=== PATIENT | male | born 1980 | race Two or more races ===

== ENCOUNTER 2017-08-14 12:06 | Emergency (ER) | payer SELFPAY ==
[2017-08-14 12:15] VITALS: BP 144/104
--- NOTE | 2017-08-14 12:32 | EDM.PDOC ---
ED HPI GENERAL MEDICAL PROBLEM - General Chief Complaint: General Stated Complaint: DENTAL PAIN Time Seen by Provider: 08/14/17 12:28 Source of Information: Reports: Patient History Limitations: Reports: No Limitations - History of Present Illness INITIAL COMMENTS - FREE TEXT/NARRATIVE: HISTORY AND PHYSICAL: History of present illness: [37-year-old male complains of left jaw toothache for one day. Patient points to #18 states it's been hurting him. He has no facial swelling no intraoral swelling. He does not have a visible cavity but states it hurts if he touches the tooth. No headache or stiff neck no fevers chills sweats or shaking chills. Denies chest pain or shortness of breath no other complaints patient has not seen a dentist Review of systems: As per history of present illness and below otherwise all systems reviewed and negative. Past medical history: As per history of present illness and as reviewed below otherwise noncontributory. Surgical history: As per history of present illness and as reviewed below otherwise noncontributory. Social history: No reported history of drug or alcohol abuse. Family history: As per history of present illness and as reviewed below otherwise noncontributory. Physical exam: Well-appearing 37-year-old male no acute distress. Mild tenderness #18 swelling or mass. Normal intraoral exam no submental fullness swelling her tongue elevation. No cheek mass or swelling. Normal oropharynx no cervical adenopathy supple neck clear lungs regular rhythm no murmur remainder of exam is benign HEENT: Atraumatic, normocephalic, pupils reactive, negative for conjunctival pallor or scleral icterus, mucous membranes moist, throat clear, neck supple, nontender, trachea midline. Lungs: Clear to auscultation, breath sounds equal bilaterally, chest nontender. Heart: S1S2, regular, negative for clicks, rubs, or JVD. Abdomen: Soft, nondistended, nontender. Negative for masses or hepatosplenomegaly. Negative for costovertebral tenderness. Pelvis: Stable nontender. Genitourinary: Deferred. Rectal: Deferred. Extremities: Atraumatic, negative for cords or calf pain. Neurovascular unremarkable. Neuro: Awake, alert, oriented. Cranial nerves grossly unremarkable. Cerebellum unremarkable. Motor and sensory unremarkable throughout. Exam nonfocal. Diagnostics: [] Therapeutics: [Penicillin and Toradol] Impression: [Toothache] Plan: [Signs and symptoms consistent with toothache suspected secondary to dental infection however no drainable abscess appreciated and patient has no systemic signs of illness. Penicillin given in ED and prescribed. Toradol administered in ED the patient is aware to take ibuprofen every 6 hours and Tylenol as needed. Follow-up with a dentist in one to 2 days and return immediately for new severe or worsening symptoms] Definitive disposition and diagnosis as appropriate pending reevaluation and review of above. left lower dental Pain Score (Numeric/FACES): 7 - Related Data Allergies Allergy/AdvReac Type Severity Reaction Status Date / Time No Known Allergies Allergy Verified 08/14/17 12:15 Home Meds: Home Meds Penicillin V Potassium [IJP: Penicillin V Potassium] 500 mg PO .EVERY 6 HOURS # 40 tab 08/14/17 [Rx] Past Medical History - Past Health History Medical/Surgical History: Denies Medical/Surgical History Social & Family History - Family History Family Medical History: Noncontributory - Tobacco Use Smoking Status *Q: Current Some Day Smoker Years of Tobacco use: 3 Packs/Tins Daily: 0 - Caffeine Use Caffeine Use: Reports: None - Recreational Drug Use Recreational Drug Use: No ED ROS GENERAL - Review of Systems Review Of Systems: See Below (History of present illness) ED EXAM, GENERAL - Physical Exam Exam: See Below (History of present illness) Course - Vital Signs Last Recorded V/S: Last Vital Signs Temp 36.6 C 08/14/17 12:12 Pulse 79 08/14/17 12:12 Resp 16 08/14/17 12:12 BP 144/104 H 08/14/17 12:12 Pulse Ox 94 L 08/14/17 12:12 Departure - Departure Time of Disposition: 12:49 Disposition: Home, Self-Care 01 Condition: Good Clinical Impression: Toothache - Discharge Information Referrals: PCP,None [Primary Care Provider] - Forms: ED Department Discharge Additional Instructions: You have a toothache. It is most likely that the pain in the tooth of your left jaw is a result of an infection associated with a cavity. Finish penicillin as prescribed 4 times a day for 10 days. If you have discomfort take 800 mg of ibuprofen every 6 hours and also take Tylenol every 4 hours if needed. Follow- up with the dentist for dental clinic in one to 2 days. Return immediately for new severe or worsening symptoms
[2017-08-14] MEDS ORDERED: Ketorolac 60 MG/2 ML SDV IM ONE (12:51)
[2017-08-14] MEDS ORDERED: Penicillin V Potassium 500 MG Tab PO ONE (12:51)
== END 2017-08-14 13:32 | disposition home or self-care (01) ==
LOC: MW.ED 12:06
DX: K08.89 Other specified disorders of teeth and supporting structures (principal); F17.210 Nicotine dependence, cigarettes, uncomplicated
CPT/HCPCS: 96372; 99282; A9270; J1885

== ENCOUNTER 2020-03-11 08:24 | Emergency (ER) | payer SELFPAY ==
[2020-03-11] MEDS ORDERED: Sodium Chloride 0.9% 1,000 ML IV ONE (09:12)
[2020-03-11] MEDS ORDERED: Aspirin 81 MG Tab.Chew PO SCH (09:15)
[2020-03-11] MEDS ORDERED: Alum Hydrox/Mag Hydrox/Simeth 15 ML, Metoclopramide 5 MG, Lidocaine 2% 5 ML PO ONE ×3 (09:19)
[2020-03-11 09:36] LABS: BLOOD UREA NITROGEN,BUN 19 mg/dL (7.0-18.0); CARBON DIOXIDE,CO2 27.4 mmol/L (21.0-32.0); CHLORIDE,CL 104 mmol/L (98-107); GLUCOSE RANDOM 132 mg/dL (74-106); POTASSIUM,K 3.7 mmol/L (3.5-5.1); SODIUM,NA 139 mmol/L (136-148)
--- NOTE | 2020-03-11 09:39 | CR ---
Chest: Portable view of the chest was obtained. Comparison: No prior chest imaging is available. Heart size and mediastinum are within normal limits. Lungs are clear with no acute parenchymal change. Bony structures are grossly intact. Impression: 1. Nothing acute is appreciated on portable chest x-ray. Diagnostic code #1 This report was dictated in MDT
--- NOTE | 2020-03-11 09:58 | EDM.PDOC ---
ED HPI GENERAL MEDICAL PROBLEM - General Chief Complaint: Chest Pain Stated Complaint: HEADACHE Time Seen by Provider: 03/11/20 09:56 Source of Information: Reports: Patient History Limitations: Reports: No Limitations - History of Present Illness INITIAL COMMENTS - FREE TEXT/NARRATIVE: This is a 38-year-old male with a chest pain. Patient states that he has sided chest pain. Onset: Today Duration: Day(s):, Improving Location: Reports: Chest Quality: Reports: Burning Severity: Mild Improves with: Reports: None Worsens with: Reports: None Associated Symptoms: Reports: Chest Pain chest pain Pain Score (Numeric/FACES): 2 - Related Data Allergies Allergy/AdvReac Type Severity Reaction Status Date / Time No Known Allergies Allergy Verified 03/11/20 08:31 Home Meds: Home Meds . [No Known Home Meds] 03/11/20 [History] Past Medical History - Past Health History Medical/Surgical History: Denies Medical/Surgical History - Infectious Disease History Infectious Disease History: Reports: None Social & Family History - Family History Family Medical History: Noncontributory - Tobacco Use Smoking Status *Q: Never Smoker - Caffeine Use Caffeine Use: Reports: None - Recreational Drug Use Recreational Drug Use: No ED ROS GENERAL - Review of Systems Review Of Systems: See Below Constitutional: Reports: No Symptoms HEENT: Reports: No Symptoms Respiratory: Reports: No Symptoms Cardiovascular: Reports: Chest Pain Endocrine: Reports: No Symptoms GI/Abdominal: Reports: No Symptoms : Reports: No Symptoms Musculoskeletal: Reports: No Symptoms Skin: Reports: No Symptoms Neurological: Reports: No Symptoms Psychiatric: Reports: No Symptoms Hematologic/Lymphatic: Reports: No Symptoms Immunologic: Reports: No Symptoms ED EXAM, GENERAL - Physical Exam Exam: See Below General Appearance: Alert, WD/WN, No Apparent Distress Eye Exam: Bilateral Eye: Normal Fundi, Normal Inspection, PERRL Ears: Normal External Exam, Normal Canal, Hearing Grossly Normal, Normal TMs Ear Exam: Bilateral Ear: Auricle Normal, Canal Normal, TM normal Nose: Normal Inspection, Normal Mucosa, No Blood Throat/Mouth: Normal Inspection, Normal Lips, Normal Teeth, Normal Gums, Normal Voice, No Airway Compromise Head: Atraumatic, Normocephalic Neck: Normal Inspection, Supple, Non-Tender Respiratory/Chest: No Respiratory Distress, Lungs Clear, Normal Breath Sounds, No Accessory Muscle Use, Chest Non-Tender Cardiovascular: Normal Peripheral Pulses, Regular Rate, Rhythm, No Edema, No Gallop, No JVD, No Murmur, No Rub GI/Abdominal: Normal Bowel Sounds, Soft, Non-Tender, No Abnormal Bruit Back Exam: Normal Inspection, Full Range of Motion Extremities: Normal Inspection, Normal Range of Motion, Non-Tender, No Pedal Edema, Normal Capillary Refill Neurological: Alert, Oriented, CN II-XII Intact, Normal Cognition, Normal Gait, Normal Reflexes, No Motor/Sensory Deficits Psychiatric: Normal Affect, Normal Mood Skin Exam: Warm, Dry, Intact, Normal Color, No Rash Lymphatic: No Adenopathy EKG INTERPRETATION Rhythm: NSR [place]: Normal QRS: Normal ST-T: Normal QT: Normal Course - Vital Signs Text/Narrative:: This 38-year-old [place] gentleman was given Reglan for his right-sided chest pain and difficulty swallowing. His pain is improved now having no pain. Patient will be discharged home with diagnosis of esophageal spasm. Patient's cardiac enzymes are negative patient's EKG is normal Last Recorded V/S: Last Vital Signs Temp 97.0 F 03/11/20 08:31 Pulse 68 03/11/20 09:45 Resp 18 03/11/20 09:45 BP 130/86 03/11/20 09:45 Pulse Ox 98 03/11/20 09:45 - Orders/Labs/Meds Orders: Active Orders 24 hr Category Date Time Status EKG Documentation Completion [RC] STAT Care 03/11/20 08:39 Active Aspirin Med 03/11/20 09:15 Active 324 mg PO DAILY Sodium Chloride 0.9% [Normal Saline] 1,000 ml Med 03/11/20 09:12 Active IV .Bolus Medication Orders Aspirin (Aspirin) 324 mg PO DAILY [facility] Last Admin: 03/11/20 09:28 Dose: 324 mg Sodium Chloride (Normal Saline) 1,000 mls @ 1,000 mls/hr IV .Bolus ONE Stop: 03/11/20 10:11 Last Admin: 03/11/20 09:31 Dose: 1,000 mls/hr Labs: Laboratory Tests 03/11/20 03/11/20 Range/Units 08:50 08:50 WBC 9.33 (4.0-11.0) K/uL RBC 5.40 (4.50-5.90) M/uL Hgb 15.6 (13.0-17.0) g/dL Hct 46.2 (38.0-50.0) % MCV 85.6 (80.0-98.0) fL MCH 28.9 (27.0-32.0) pg MCHC 33.8 (31.0-37.0) g/dL RDW Std Deviation 40.3 (28.0-62.0) fl RDW Coeff of Erica 13 (11.0-15.0) % Plt Count 121 L (150-400) K/uL MPV 12.80 H (7.40-12.00) fL Neut % (Auto) 55.9 (48.0-80.0) % Lymph % (Auto) 33.1 (16.0-40.0) % Early % (Auto) 6.5 (0.0-15.0) % Eos % (Auto) 4.3 (0.0-7.0) % Baso % (Auto) 0.2 (0.0-1.5) % Neut # (Auto) 5.2 (1.4-5.7) K/uL Lymph # (Auto) 3.1 H (0.6-2.4) K/uL Early # (Auto) 0.6 (0.0-0.8) K/uL Eos # (Auto) 0.4 (0.0-0.7) K/uL Baso # (Auto) 0.0 (0.0-0.1) K/uL Nucleated RBC % 0.0 /100WBC Nucleated RBCs # 0 K/uL Sodium 139 (136-148) mmol/L Potassium 3.7 (3.5-5.1) mmol/L Chloride 104 (98-107) mmol/L Carbon Dioxide 27.4 (21.0-32.0) mmol/L BUN 19 H (7.0-18.0) mg/dL Creatinine 1.0 (0.8-1.3) mg/dL Est Cr Clr Drug Dosing 102.12 mL/min Estimated GFR (MDRD) > 60.0 ml/min Glucose 132 H (74-106) mg/dL Calcium 8.7 (8.5-10.1) mg/dL Total Bilirubin 0.3 (0.2-1.0) mg/dL AST 23 (15-37) IU/L ALT 42 (14-63) IU/L Alkaline Phosphatase 66 (46-116) U/L Troponin I < 0.050 (0.000-0.056) ng/mL Total Protein 7.8 (6.4-8.2) g/dL Albumin 4.1 (3.4-5.0) g/dL Globulin 3.7 (2.6-4.0) g/dL Albumin/Globulin Ratio 1.1 (0.9-1.6) Meds: Medications Generic Name Dose Route Start Last Admin Trade Name Freq PRN Reason Stop Dose Admin Aspirin 324 mg 03/11/20 09:15 03/11/20 09:28 Aspirin PO 324 mg DAILY PAVITHRA Administration Sodium Chloride 1,000 mls @ 1,000 mls/hr 03/11/20 09:12 03/11/20 09:31 Normal Saline IV 03/11/20 10:11 1,000 mls/hr .Bolus ONE Administration Discontinued Medications Generic Name Dose Route Start Last Admin Trade Name Freq PRN Reason Stop Dose Admin Al Hydroxide/Mg Hydroxide 15 0 ml 03/11/20 09:19 03/11/20 09:29 ml/ Metoclopramide HCl 5 mg/ PO 03/11/20 09:20 25 each Lidocaine HCl 5 ml ONETIME ONE Administration Departure - Departure Time of Disposition: 10:01 Disposition: Home, Self-Care 01 Condition: Good Clinical Impression: Gastroesophageal reflux disease Instructions: Gastroesophageal Reflux Disease, Adult, [id number] Referrals: PCP,None [Primary Care Provider] - Additional Instructions: I.take medication as prescribed 2. With your primary care physician as needed, within 2 weeks Return for any problems Sepsis Event Note - Evaluation Sepsis Screening Result: No Definite Risk - Focused Exam Vital Signs: Vital Signs Temp Pulse Resp BP Pulse Ox 03/11/20 09:45 68 18 130/86 98 03/11/20 08:31 97.0 F 89 18 135/81 97 Date Exam was Performed: 03/11/20 Time Exam was Performed: 09:53 - My Orders Last 24 Hours: My Active Orders 03/11/20 08:39 EKG Documentation Completion [RC] STAT 03/11/20 09:12 Sodium Chloride 0.9% [Normal Saline] 1,000 ml IV .Bolus 03/11/20 09:15 Aspirin 324 mg PO DAILY - Assessment/Plan Last 24 Hours: My Active Orders 03/11/20 08:39 EKG Documentation Completion [RC] STAT 03/11/20 09:12 Sodium Chloride 0.9% [Normal Saline] 1,000 ml IV .Bolus 03/11/20 09:15 Aspirin 324 mg PO DAILY
[2020-03-11 10:40] VITALS: BP 127/83; PULSE 66
== END 2020-03-11 10:37 | disposition home or self-care (01) ==
LOC: MW.ED 08:24 → EDBD 08:24 → MW.ED 10:37
DX: K21.9 Gastro-esophageal reflux disease without esophagitis (principal)
CPT/HCPCS: 71045; 80053; 84484; 85025; 96360; 99285; A9270; J7030

== ENCOUNTER 2020-11-23 18:54 | Emergency (ER) | payer SELFPAY ==
[2020-11-23] MEDS ORDERED: Ibuprofen 600 MG Tab PO ONE (19:13)
[2020-11-23] MEDS ORDERED: Cephalexin 500 MG Cap PO ONE (19:13)
--- NOTE | 2020-11-23 19:18 | EDM.PDOC ---
ED HPI GENERAL MEDICAL PROBLEM - General Chief Complaint: ENT Problem Stated Complaint: TOOTH PROBLEM Time Seen by Provider: 11/23/20 19:07 - History of Present Illness INITIAL COMMENTS - FREE TEXT/NARRATIVE: HISTORY AND PHYSICAL: History of present illness: This is a 39-year-old gentleman who presents ER today complaining of pain to his right upper premolar tooth times several days. Patient reports he had pain in that tooth multiple times in the past. Patient has not seen a dentist for this as of yet. Patient has no recent fevers, shakes, chills, nausea, vomiting, diarrhea, dysuria, frequency, urgency, chest pain, shortness of breath. Patient denies any history of hypertension, diabetes, liver, lung, kidney problems. Patient denies any alcohol or drugs. Patient has no known drug allergies. Review of systems: As per history of present illness and below otherwise all systems reviewed and negative. Past medical history: As per history of present illness and as reviewed below otherwise noncontributory. Surgical history: As per history of present illness and as reviewed below otherwise noncontributory. Social history: No reported history of drug or alcohol abuse. Family history: As per history of present illness and as reviewed below otherwise noncontributory. Physical exam: Constitutional: Patient is oriented to person, place, and time. Appears well- developed and well-nourished. No distress. HEENT: Moist mucous membranes Head: Normocephalic and atraumatic Eyes: Right eye exhibits no discharge. Left eye exhibits no discharge. No scleral icterus Neck: Normal range of motion. No tracheal deviation present. Cardiovascular: Normal rate and regular rhythm. Pulmonary: Effort normal, no respiratory distress. Abdominal: No distention Musculoskeletal: Normal range of motion Neurologic: Alert and oriented to person, place and time. Skin: [place], warm and dry. Psychiatric: Normal mood and affect. Behavior is normal. Judgment and thought content normal. Nursing note and vital signs have been reviewed Patient's ER physical exam is significant for tenderness to palpation and significant dental caries to his right upper premolar. There is a small amount of gingival erythema with no evidence of fluctuance or abscess palpable. This patient was seen and evaluated during the 2019 SARS-CoV-2 novel coronavirus pandemic period. Community viral transmission is ongoing at time of this encounter and the emergency department is operating under pandemic response procedures. Assessment and plan: This is a 39-year-old gentleman who presents ER today with likely dental infec tion resulting in pain. Patient be started on Keflex and ibuprofen in the ED and will be given a prescription for Keflex ibuprofen and Ultram to assist with his pain until he is able to see a dentist. Reassessment at the time of disposition demonstrates that the patient is in no acute distress. The patient has remained stable throughout the entire ED visit and is without objective evidence for acute process requiring urgent intervention or hospitalization. The patient is stable for discharge, counseling is provided as documented above, discussed symptomatic treatment and specific conditions for return. I have spoken with the patient/caregiver and discussed todays findings, in addition to providing specific details for the plan of care. Questions are answered and there is agreement with the plan. Definitive disposition and diagnosis as appropriate pending reevaluation and review of above. R upper mouth Pain Score (Numeric/FACES): 8 - Related Data Allergies Allergy/AdvReac Type Severity Reaction Status Date / Time No Known Allergies Allergy Verified 11/23/20 19:20 Home Meds: Home Meds Ibuprofen 600 mg PO Q6HR PRN #30 tablet 11/23/20 [Rx] cephALEXin [Keflex] 500 mg PO TID #30 capsule 11/23/20 [Rx] traMADol [Ultram] 50 mg PO Q6H PRN #12 tab 11/23/20 [Rx] Past Medical History - Past Health History Medical/Surgical History: Denies Medical/Surgical History - Infectious Disease History Infectious Disease History: Reports: None Social & Family History - Family History Family Medical History: No Pertinent Family History - Caffeine Use Caffeine Use: Reports: None ED ROS GENERAL - Review of Systems Review Of Systems: See Below ED EXAM, GENERAL - Physical Exam Exam: See Below Course - Vital Signs Last Recorded V/S: Last Vital Signs Temp 97.3 F 11/23/20 19:06 Pulse 65 11/23/20 19:06 Resp 18 11/23/20 19:06 BP 154/87 H 11/23/20 19:06 Pulse Ox 96 11/23/20 19:06 - Orders/Labs/Meds Meds: Medications Discontinued Medications Generic Name Dose Route Start Last Admin Trade Name Freq PRN Reason Stop Dose Admin Cephalexin 500 mg 11/23/20 19:13 Keflex PO 11/23/20 19:14 ONETIME ONE Ibuprofen 600 mg 11/23/20 19:13 Motrin PO 11/23/20 19:14 ONETIME ONE Departure - Departure Time of Disposition: 19:16 Disposition: Home, Self-Care 01 Condition: Good Clinical Impression: Dental caries, Dental abscess, Dental caries extending into dentin - Discharge Information Instructions: Dental Abscess, [id number] Referrals: PCP,None [Primary Care Provider] - Forms: ED Department Discharge Additional Instructions: You were seen and evaluated in the ER today secondary to a toothache which is likely secondary to a dental infection. You will be given a prescription for Keflex to take 3 times a day as an antibiotic. He will also given a prescription for ibuprofen and Ultram which will help you with the pain until you are able to see a dentist. You must see a dentist within the next week for evaluation and definitive management of that tooth. The following information is given to patients seen in the emergency department who are being discharged to home. This information is to outline your options for follow-up care. We provide all patients seen in our emergency department with a follow-up referral. The need for follow-up, as well as the timing and circumstances, are variable d epending upon the specifics of your emergency department visit. If you don't have a primary care physician on staff, we will provide you with a referral. We always advise you to contact your personal physician following an emergency department visit to inform them of the circumstance of the visit and for follow-up with them and/or the need for any referrals to a consulting specialist. The emergency department will also refer you to a specialist when appropriate. This referral assures that you have the opportunity for follow-up care with a specialist. All of these measure are taken in an effort to provide you with optimal care, which includes your follow-up. Under all circumstances we always encourage you to contact your private physician who remains a resource for coordinating your care. When calling for follow-up care, please make the office aware that this follow-up is from your recent emergency room visit. If for any reason you are refused follow-up, please contact the [facility] Emergency Department at and asked to speak to the emergency department charge nurse. [facility] [address] [place] [id number] [facility] [address] [place] [address] Sepsis Event Note (ED) - Evaluation Sepsis Screening Result: No Definite Risk - Focused Exam Vital Signs: Vital Signs Temp Pulse Resp BP Pulse Ox 11/23/20 19:06 97.3 F 65 18 154/87 H 96
[2020-11-23 19:56] VITALS: BP 142/76; PULSE 61
== END 2020-11-23 19:48 | disposition home or self-care (01) ==
LOC: MW.ED 18:54
DX: K04.7 Periapical abscess without sinus (principal); K02.9 Dental caries, unspecified
CPT/HCPCS: 99282; A9270-GY

== ENCOUNTER 2021-08-21 20:18 | Emergency (ER) | payer BC ==
[2021-08-21] MEDS ORDERED: Morphine 4 MG/ML Syringe IVPUSH ONE (22:45)
[2021-08-21] MEDS ORDERED: Lactated Ringers 1,000 ML IV SCH (22:45)
[2021-08-21 23:26] LABS: BLOOD UREA NITROGEN,BUN 16 mg/dL (7.0-18.0); CARBON DIOXIDE,CO2 30.5 mmol/L (21.0-32.0); CHLORIDE,CL 100 mmol/L (98-107); GLUCOSE RANDOM 120 mg/dL (74-106); POTASSIUM,K 4.3 mmol/L (3.5-5.1); SODIUM,NA 136 mmol/L (136-148)
[2021-08-22] MEDS ORDERED: Iopamidol 755 Mg/ML 100 ML Bottle IVPUSH ONE (00:24)
--- NOTE | 2021-08-22 00:51 | CT ---
CT HEAD DATE: 08/22/2021 CLINICAL HISTORY: Patient with headache. TECHNIQUE: Standard CT scanning of the head was performed. COMPARISON: None. FINDINGS: There is no intracranial hemorrhage. 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 There is no mass effect or midline shift. The calvarium is unremarkable. The orbits are unremarkable. The paranasal sinuses demonstrate a moderate mucous retention cyst in the right maxillary sinus and mild mucosal thickening in the left maxillary sinus and ethmoid air cells. The mastoid air cells are unremarkable. The soft tissues are unremarkable. IMPRESSION: 1. No intracranial hemorrhage. 2. Mild to moderate paranasal mucosal sinus disease. 3. 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 Please note that all CT scans at this facility use dose modulation, iterative reconstruction, and/or weight-based dosing when appropriate to reduce radiation dose to as low as reasonably achievable. Dictated by: Evangelista Andrews MD @ 08/22/2021 00:49:19 (Electronically Signed)
--- NOTE | 2021-08-22 00:55 | CT ---
CT ANGIOGRAM HEAD DATE: 08/22/2021 CLINICAL HISTORY: Patient with headache. TECHNIQUE: Standard helical CT image acquisition through the intracranial circulation following intravenous administration of contrast material with bolus tracking. Multiplanar reconstructed images were performed and interpreted. COMPARISON: CT same day. FINDINGS: There is no cerebral aneurysm or large vessel occlusion. The right internal carotid artery is normal. The right middle cerebral artery and its branches are normal. The right anterior cerebral artery and its branches are normal. The left internal carotid artery is normal. The left middle cerebral artery and its branches are normal. The left anterior cerebral artery and its branches are normal. The anterior communicating artery is well visualized and appears normal. The right vertebral artery and PICA are normal. The left vertebral artery and PICA are normal. The vertebral arteries are codominant. The basilar artery is patent and appears normal. The right posterior cerebral artery is normal. The left posterior cerebral artery is normal. The visualized venous structures are patent. IMPRESSION: Normal CT angiogram of the head without intracranial aneurysm or other neurovascular abnormality. Please note that all CT scans at this facility use dose modulation, iterative reconstruction, and/or weight-based dosing when appropriate to reduce radiation dose to as low as reasonably achievable. Dictated by: Evangelista Andrews MD @ 08/22/2021 00:53:57 (Electronically Signed)
[2021-08-22] MEDS ORDERED: Prochlorperazine 10 MG/2 ML SDV IVPUSH ONE (01:04)
[2021-08-22] MEDS ORDERED: diphenhydrAMINE 50 MG/ML SDV IVPUSH ONE (01:04)
[2021-08-22] MEDS ORDERED: Dexamethasone 10 MG/ML SDV IVPUSH ONE (01:04)
[2021-08-22] MEDS ORDERED: Ketorolac 15 MG/ML SDV IVPUSH ONE (01:04)
[2021-08-22] MEDS ORDERED: Dextrose 5%-Lactated Ringers 1,000 ML IV SCH (01:15)
--- NOTE | 2021-08-22 01:16 | CT ---
CT ANGIOGRAM NECK DATE: 08/22/2021 CLINICAL HISTORY: Patient with headache. TECHNIQUE: Standard helical CT image acquisition of the neck up to the skull base after bolus intravenous contrast enhancement. Multiplanar reconstructed images performed on a separate workstation. COMPARISON: CT/CTA same day. FINDINGS: Images are degraded by late contrast bolus timing. The origins of the great vessels from the aortic arch are patent. The origin of the right vertebral artery is patent. The origin of the left vertebral artery is patent. The common carotid arteries are patent. There is no stenosis at the origin of the right internal carotid artery. There is no stenosis at the origin of the left internal carotid artery. The rest of the cervical segments of the internal carotid arteries are patent up to the skull base. The vertebral arteries are codominant. The cervical segments of the vertebral arteries are patent up to the skull base. The visualized intracranial vasculature is unremarkable. The visualized lung apices are unremarkable. The thyroid gland is unremarkable. The soft tissues of the neck are unremarkable. There are degenerative changes in the cervical spine. IMPRESSION: Normal CT angiogram of the neck. Please note that all CT scans at this facility use dose modulation, iterative reconstruction, and/or weight-based dosing when appropriate to reduce radiation dose to as low as reasonably achievable. Dictated by: Evangelista Andrews MD @ 08/22/2021 01:15:25 (Electronically Signed)
--- NOTE | 2021-08-22 02:48 | EDM.PDOC ---
ED HPI GENERAL MEDICAL PROBLEM - General Chief Complaint: Headache Stated Complaint: HEADACHE Time Seen by Provider: 08/21/21 22:01 - History of Present Illness INITIAL COMMENTS - FREE TEXT/NARRATIVE: *All interaction with patient held with fur sorter in presence. CHIEF COMPLAINT(S): Headache HISTORY OF PRESENT ILLNESS: This is a 40-year-old man without any significant past medical history who presents to the emergency department with a headache. The patient states that he has had a headache which he describes as bifrontal not associated with any numbness, tingling or weakness. He denies any blurry vision or loss of vision. He states that he has never had a headache before. He states that this happened starting this morning. He states that it started off mild and then progressively got worse. He currently rates his pain as 10 out of 10. He denies any diplopia, nausea, vomiting, tinnitus, trouble walking, trouble speaking or trouble swallowing. He denies any head injury or loss of consciousness. In addition he states that he is experiencing back pain. He cannot describe either pain so therefore it is uncertain the quality of the pain. Both onset today. He states that he is Covid vaccine and. He denies any sick contacts. He denies any chest pain, shortness of breath, abdominal pain. He has tried Tylenol without any relief. He denies any neck pain or stiffness. He denies any recent travel or surgery. REVIEW OF SYSTEMS: Constitutional: Denies fever, chills. Eyes: Denies eye pain Ears, Nose, Mouth, & Throat: Denies earache Cardiovascular: Denies chest pain Respiratory: Denies shortness of breath Gastrointestinal: Denies Nausea, vomiting, diarrhea, hematochezia. Genitourinary: Denies hematuria Skin:Denies a rash MSK: Positive for lower back pain Neurological: Positive for headache. Denies blurred vision, loss of vision, double vision, trouble walking, speaking, swallowing psychiatric: Denies depression PAST MEDICAL HISTORY: As per history of present illness and as reviewed below otherwise noncontributory. SURGICAL HISTORY: As per history of present illness and as reviewed below otherwise noncontributory. SOCIAL HISTORY: As per history of present illness and as reviewed below otherwise noncontributory. FAMILY HISTORY: As per history of present illness and as reviewed below otherwise noncontributory. EXAMINATION OF ORGAN SYSTEMS/BODY AREAS: Constitutional: Blood pressure was 142/84, heart rate 83, respiratory rate 17 with an oxygen saturation of 97% on room air. Temperature 36 4 General: Young man who does not appear to be in acute distress psychiatric: Appropriate mood and affect. Eyes: No scleral icterus or conjunctival erythema pupils were 3 mm and reactive bilaterally. Extraocular movements intact. No vertical or horizontal nystagmus noted. ENMT: Moist mucous membranes. No pharyngeal erythema tongue protrudes midline. No stridor, drooling, trismus. Cardiovascular: Regular, rate, and rhythm. No gallops, murmurs, or rubs. Bilateral upper extremity pulses symmetric and intact. No peripheral edema. No JVD. Respiratory: Lungs clear to auscultation bilaterally. No wheezes, rales, or rhonchi. Gastrointestinal: Soft, non-tender, non-distended. Normoactive bowel sounds Genitourinary: No suprapubic tenderness Musculoskeletal: Normal range of motion. Skin: No lesions or abrasions. Neurological: AOx4. CN grossly intact. Strength 5/5 in bilateral upper and lower extremity. Sensation is intact bilaterally in upper and lower extremity. Gait appears normal. Finger to nose, heel to jaimes, rapid alternating movements intact. MEDICAL DECISION MAKING AND COURSE IN THE ED WITH INTERPRETATION/REVIEW OF DIAGNOSTIC STUDIES: This is a 40-year-old man without any significant past medical history who presents to the emergency department with headache and back pain he does not have any evidence of any meningeal signs, is afebrile, well- appearing. At this time given the uncertainty as to the quality of his headache and given that the patient has never had a headache before we will obtain CT head and CTA of the head and neck for further evaluation. We will provide the patient with 4 mg of morphine until CT head is done. Obtain basic labs including CBC, BMP and Covid. The patient was amenable to this plan. Laboratory: CBC reveals thrombocytopenia with a platelet count of 89 otherwise unremarkable. BMP is unremarkable. Covid is negative The radiological images were viewed by myself along with reading the report from the radiologist. CT head without contrast reveals no intracranial hemorrhage. Mild to moderate paranasal mucosal sinus disease. 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 CTA of the head and neck do not reveal any abnormalities. After imaging I did provide patient with migraine cocktail including dexamethasone. We will reevaluate. On reevaluation the patient reported significant improvement to his headache. At this time I did discuss the results of the imaging with the patient. In addition I did discuss laboratory analysis. At this time given the patient's improvement in his symptoms and given that the findings on CT are likely chronic I did discuss that he needed to follow-up with his primary care physician for possible referral. Given the location of headache I highly doubt this has an ything to do with the CT findings however it is pertinent that he does follow- up. He did express understanding is amenable to discharge at this time. DISPOSITION: The patient was discharged home in stable condition. The patient will follow up with primary care physician in 3 to 5 days CONDITION: Fair PROCEDURES: None FINAL IMPRESSION(S)/DIAGNOSES: 1. Acute headache 2. Acute thrombocytopenia 3. Porencephalic cyst Sebastien Bautista M.D. Bilateral Anterior Head Pain Score (Numeric/FACES): 9 - Related Data Allergies Allergy/AdvReac Type Severity Reaction Status Date / Time No Known Allergies Allergy Verified 08/21/21 21:48 Home Meds: Home Meds . [No Known Home Meds] 08/21/21 [History] Past Medical History - Past Health History Medical/Surgical History: Denies Medical/Surgical History - Infectious Disease History Infectious Disease History: Reports: None Social & Family History - Family History Family Medical History: No Pertinent Family History - Tobacco Use Tobacco Use Status *Q: Never Tobacco User - Caffeine Use Caffeine Use: Reports: None - Recreational Drug Use Recreational Drug Use: No ED ROS GENERAL - Review of Systems Review Of Systems: See Below ED EXAM, GENERAL - Physical Exam Exam: See Below Course - Vital Signs Last Recorded V/S: Last Vital Signs Temp 36.4 C 08/21/21 21:49 Pulse 83 08/22/21 05:01 Resp 18 08/22/21 05:01 BP 138/87 08/22/21 05:01 Pulse Ox 96 08/22/21 05:01 - Orders/Labs/Meds Labs: Laboratory Tests 08/21/21 08/21/21 08/21/21 Range/Units 22:16 22:59 22:59 WBC 7.22 (4.0-11.0) K/uL RBC 5.19 (4.50-5.90) M/uL Hgb 15.1 (13.0-17.0) g/dL Hct 42.6 (38.0-50.0) % MCV 82.1 (80.0-98.0) fL MCH 29.1 (27.0-32.0) pg MCHC 35.4 (31.0-37.0) g/dL RDW Std Deviation 38.6 (28.0-62.0) fl RDW Coeff of Erica 13 (11.0-15.0) % Plt Count 89 L (150-400) K/uL MPV 12.00 (7.40-12.00) fL Neut % (Auto) 84.8 H (48.0-80.0) % Lymph % (Auto) 7.1 L (16.0-40.0) % Sumner % (Auto) 7.5 (0.0-15.0) % Eos % (Auto) 0.6 (0.0-7.0) % Baso % (Auto) 0.0 (0.0-1.5) % Neut # (Auto) 6.1 H (1.4-5.7) K/uL Lymph # (Auto) 0.5 L (0.6-2.4) K/uL Sumner # (Auto) 0.5 (0.0-0.8) K/uL Eos # (Auto) 0.0 (0.0-0.7) K/uL Baso # (Auto) 0.0 (0.0-0.1) K/uL Nucleated RBC % 0.0 /100WBC Nucleated RBCs # 0 K/uL Sodium 136 (136-148) mmol/L Potassium 4.3 (3.5-5.1) mmol/L Chloride 100 (98-107) mmol/L Carbon Dioxide 30.5 (21.0-32.0) mmol/L BUN 16 (7.0-18.0) mg/dL Creatinine 1.1 (0.8-1.3) mg/dL Est Cr Clr Drug Dosing 102.90 mL/min Estimated GFR (MDRD) > 60.0 ml/min Glucose 120 H (74-106) mg/dL Calcium 8.6 (8.5-10.1) mg/dL SARS-CoV-2 RNA (DARYN) NEGATIVE (NEGATIVE) Meds: Medications Discontinued Medications Generic Name Dose Route Start Last Admin Trade Name Herlinda PRN Reason Stop Dose Admin Dexamethasone 10 mg 08/22/21 01:04 08/22/21 01:16 Dexamethasone 10 Mg/Ml Sdv IVPUSH 08/22/21 01:05 10 mg ONETIME ONE Administration Diphenhydramine HCl 50 mg 08/22/21 01:04 08/22/21 01:16 Diphenhydramine 50 Mg/Ml Sdv IVPUSH 08/22/21 01:05 50 mg ONETIME ONE Administration Lactated Ringer's 1,000 mls @ 999 mls/hr 08/21/21 22:45 08/21/21 23:06 Ringers, Lactated IV 999 mls/hr ASDIRECTED PAVITHRA Administration Dextrose/Lactated Ringer's 1,000 mls @ 999 mls/hr 08/22/21 01:15 08/22/21 01:17 Dextrose 5%-Lactated Ringers IV 999 mls/hr ASDIRECTED PAVITHRA Administration Iopamidol 100 ml 08/22/21 00:24 08/22/21 00:41 Iopamidol 755 Mg/Ml 100 Ml Bottle IVPUSH 08/22/21 00:25 100 ml ONETIME ONE Administration Ketorolac Tromethamine 15 mg 08/22/21 01:04 08/22/21 01:16 Ketorolac 15 Mg/Ml Sdv IVPUSH 08/22/21 01:05 15 mg ONETIME ONE Administration Morphine Sulfate 4 mg 08/21/21 22:45 08/21/21 23:07 Morphine 4 Mg/Ml Syringe IVPUSH 08/21/21 22:46 4 mg ONETIME ONE Administration Prochlorperazine Edisylate 5 mg 08/22/21 01:04 08/22/21 01:16 Prochlorperazine 10 Mg/2 Ml Sdv IVPUSH 08/22/21 01:05 5 mg ONETIME ONE Administration Departure - Departure Time of Disposition: 05:01 Disposition: Home, Self-Care 01 Condition: Fair Clinical Impression: Migraine, Porencephalic cyst - Discharge Information *PRESCRIPTION DRUG MONITORING PROGRAM REVIEWED*: No *COPY OF PRESCRIPTION DRUG MONITORING REPORT IN PATIENT SUZAN: No Instructions: Migraine Headache Referrals: PCP,None [Primary Care Provider] - Forms: ED Department Discharge Additional Instructions: You were evaluated today on an emergent basis. At this time all of your laboratory work-up was normal. Your Covid screening was negative. In addition your CT head did show what is called a Porencephalic Cyst which has likely been there since . If you have worsening headache, vomiting or other concerns I would like you to return to the emergency department otherwise I want you to follow-up with your primary care physician in 3 to 5 days for reevaluation. In addition you did have some congestion in your sinuses. I do recommend use [id number] Zyrtec, Claritin or Pita. You may use a Mcdonough pot to clear out your sinuses in addition to this. Please just remember to use distilled water. [facility] [address] [place] [id number] [address] [id number] The patient is informed of any results of their evaluation and diagnostic workup and all questions are answered. They are given discharge instructions and return precautions. The patient is stable for discharge. The patient states they understand and agree with the plan and that they will return if their symptoms get worse or if they have any new concerns. The following information is given to patients seen in the emergency department who are being discharged to home. This information is to outline your options for follow-up care. We provide all patients seen in our emergency department with a follow-up referral. The need for follow-up, as well as the timing and circumstances, are variable depending upon the specifics of your emergency department visit. If you don't have a primary care physician on staff, we will provide you with a referral. We always advise you to contact your personal physician following an emergency department visit to inform them of the circumstance of the visit and for follow-up with them and/or the need for any referrals to a consulting specialist. The emergency department will also refer you to a specialist when appropriate. This referral assures that you have the opportunity for follow-up care with a specialist. All of these measure are taken in an effort to provide you with optimal care, which includes your follow-up. Under all circumstances we always encourage you to contact your private physician who remains a resource for coordinating your care. When calling for follow-up care, please make the office aware that this follow-up is from your recent emergency room visit. If for any reason you are refused follow-up, please contact the [facility] Emergency Department at and asked to speak to the emergency department charge nurse.
[2021-08-22 05:02] VITALS: BP 138/87; PULSE 83
== END 2021-08-22 05:03 | disposition home or self-care (01) ==
LOC: MW.ED 20:18
DX: G43.909 Migraine, unspecified, not intractable, without status migrainosus (principal); Q04.6 Congenital cerebral cysts; D69.6 Thrombocytopenia, unspecified; Z20.822 Contact with and (suspected) exposure to COVID-19
CPT/HCPCS: 36415; 70450; 70496; 70498; 80048; 85025; 87635; 96374; 96375; 99284; J0780; J1100; J1200; J1885; J2270; J7120; J7121; Q9967; U0002